=== PATIENT | female | born 1965 | race Caucasian/White ===

== ENCOUNTER 2018-02-19 14:10 | Emergency (ER) | payer SELFPAY ==
[~2018-02-19] VITALS: Ht 157.5 cm; Wt 68.2 kg
[2018-02-19 14:17] VITALS: BP 155/67; TEMP 97.8
[2018-02-19] MEDS ORDERED: CEPHALEXIN500 M1 PO (15:55)
[2018-02-19] MEDS ORDERED: NORCO 325 MG-51 TAB PO (16:02)
[2018-02-19 17:18] VITALS: PULSE 74
== END 2018-02-19 17:25 | disposition home or self-care (01) ==
LOC: COL.ER 14:10
DX: I87.2 Venous insufficiency (chronic) (peripheral) (principal)

== ENCOUNTER → 2018-02-23 | Outpatient (CLI) | payer SELFPAY ==
[~2018-02-23] MED LIST: CEPHALEXIN500 M1 PO; NORCO 325 MG-51 TAB PO
== END ==
LOC: ZCOL.LAB 17:34
DX: I83.015 Varicose veins of right lower extremity with ulcer other part of foot (principal)

== ENCOUNTER 2018-11-15 01:53 | Emergency (ER) | payer SELFPAY ==
[~2018-11-15] VITALS: Ht 157.5 cm; Wt 72.7 kg
[2018-11-15 02:18] LABS: ARTERIAL BLD GAS O2 SATURATION 93.6 % (92-100); ARTERIAL BLD GAS TCO2 CT 26.9; ARTERIAL BLOOD GAS BASE EXCESS -9.8 (-2-2); ARTERIAL BLOOD GAS HCO3 23.9 meq/L (22-26); ARTERIAL BLOOD GAS PO2 100.4 mmHg (80-100)
[2018-11-15 02:20] LABS: ARTERIAL BLOOD GAS PCO2 98.3 mmHg (35-45)
[2018-11-15 02:22] LABS: ALANINE AMINOTRANSFERASE 13 U/L (9-52); ALBUMIN 4.5 gm/dL (3.5-5.0); ALKALINE PHOSPHATASE 107 U/L (50-136); ANION GAP 12 mmol/L (7-16); AST,SGOT 56 U/L (15-37); BLOOD UREA NITROGEN 20 mg/dL (7-17); CARBON DIOXIDE 21 mmol/L (22-30); CHLORIDE 111 mmol/L (98-107); CREATININE, serum 0.63 (0.52-1.25); GLUCOSE 145 mg/dL (74-106); POTASSIUM 5.2 mmol/L (3.4-5.0); SODIUM 143 mmol/L (137-145); TOTAL PROTEIN 7.8 gm/dL (6.4-8.2)
[2018-11-15 02:32] LABS: TROPONIN-I < 0.012 ng/mL (0.000-0.035)
[2018-11-15 03:01] LABS: HEMATOCRIT 49.4 % (37.0-47.0); HEMOGLOBIN 14.1 g/dl (12.5-16.0); MEAN CELL VOLUME 108 fl (80.0-100.0); MEAN CORPUSCULAR HEMOGLOBIN 31 pg (27.0-31.0); MEAN CORPUSCULAR HGB CONC 29 g/dl (33.0-37.0); MEAN PLATELET VOLUME 9.5 fl (7.4-10.4); PLATELET COUNT 243 K/mm3 (130-400); RED BLOOD COUNT 4.59 M/mm3 (4.10-5.30); REDCELL DISTRIBUTION WIDTH-CV 18.4 % (11.5-14.5)
[2018-11-15 03:08] LABS: INR 0.9 (0.8-3.0); PROTHROMBIN TIME 10.7 SECONDS (9.7-12.8)
[2018-11-15 03:17] LABS: ANISOCYTOSIS 1+; BASOPHIL 1 % (0-2); HYPOCHROMIA 3+; LYMPHOCYTE 23 % (20.0-51.0); NEUTROPHILS 69 % (42.0-75.2); PLATELET ESTIMATE NORMAL (NORMAL)
[2018-11-15 03:43] LABS: ARTERIAL BLD GAS O2 SATURATION 97.8 % (92-100); ARTERIAL BLD GAS TCO2 CT 20.8; ARTERIAL BLOOD GAS BASE EXCESS -6.7 (-2-2); ARTERIAL BLOOD GAS HCO3 19.5 meq/L (22-26); ARTERIAL BLOOD GAS PCO2 41.4 mmHg (35-45); ARTERIAL BLOOD GAS PO2 127.4 mmHg (80-100); ARTERIAL BLOOD GAS pH 7.29 (7.35-7.45)
[2018-11-15 04:05] VITALS: BP 116/82; PULSE 108
--- NOTE | 2018-11-15 06:43 | NUR ---
PER ABG RESULTS PTS FI02 WAS DECREASED FROM 40% TO 30% PARAM WELL AND NO DISTRSES WAS NOTED
== END 2018-11-15 04:05 | disposition short-term general hospital (02) ==
LOC: COL.ER 01:53
PROVIDERS: Emergency Medicine
DX: J96.00 Acute respiratory failure, unspecified whether with hypoxia or hypercapnia (principal); J44.9 Chronic obstructive pulmonary disease, unspecified; F17.210 Nicotine dependence, cigarettes, uncomplicated; Z79.891 Long term (current) use of opiate analgesic
CPT/HCPCS: J2250; J2930; J3010; J3105; J3475; J7030

== ENCOUNTER → 2019-01-04 | Outpatient (CLI) | payer OTHER | LOC: COL.PUL 09:43 | PROVIDERS: Internal Medicine Pulmonary Disease | DX: R06.02 Shortness of breath (principal) ==

== ENCOUNTER → 2019-01-08 | Outpatient (CLI) | payer OTHER ==
[2019-01-08 06:44] LABS: ARTERIAL BLD GAS O2 SATURATION 94.6 % (92-100); ARTERIAL BLD GAS TCO2 CT 26.5; ARTERIAL BLOOD GAS BASE EXCESS 0.3 (-2-2); ARTERIAL BLOOD GAS HCO3 25.2 meq/L (22-26); ARTERIAL BLOOD GAS PCO2 41.8 mmHg (35-45); ARTERIAL BLOOD GAS PO2 75.3 mmHg (80-100)
== END ==
LOC: COL.PUL 06:26
PROVIDERS: Internal Medicine Pulmonary Disease
DX: J44.9 Chronic obstructive pulmonary disease, unspecified (principal)

== ENCOUNTER 2019-01-19 15:09 | Outpatient (RCR) | payer SELFPAY | END 2019-03-22 | disposition home or self-care (01) | LOC: COL.CR | DX: Z02.89 Encounter for other administrative examinations (principal) ==

== ENCOUNTER → 2019-01-25 | Outpatient (CLI) | payer OTHER ==
[2019-01-25 09:24] LABS: BASO # 0.1 (0.0-0.2); BASO % 0.7 % (0.0-2.0); EOS # 0.2 (0.0-0.7); EOS % 2.7 % (0-4.0); GRAN % 54.3 % (42.2-75.2); HEMATOCRIT 37.7 % (37.0-47.0); LYMPH # 2.6 (1.2-3.4); LYMPH % 34.5 % (20.0-51.0); MEAN CELL VOLUME 103 fl (80.0-100.0); MEAN CORPUSCULAR HEMOGLOBIN 30 pg (27.0-31.0); MEAN CORPUSCULAR HGB CONC 29 g/dl (33.0-37.0); MEAN PLATELET VOLUME 9.4 fl (7.4-10.4); MONO # 0.6 (0.1-0.6); MONO % 7.4 % (1.7-9.3); PLATELET COUNT 178 K/mm3 (130-400); RED BLOOD COUNT 3.66 M/mm3 (4.10-5.30)
[2019-01-25 09:44] LABS: ALBUMIN 3.8 gm/dL (3.5-5.0); BILIRUBIN,TOTAL 0.7 mg/dL (0.0-1.0); CHOLESTEROL RISK RATIO 2.2; CREATININE, serum 0.81 (0.52-1.25); POTASSIUM 4.2 mmol/L (3.4-5.0); TOTAL PROTEIN 6.6 gm/dL (6.4-8.2)
[2019-01-25 10:12] LABS: TSH w REFLEX 3.15 uIU/mL (0.465-4.680)
== END ==
LOC: COL.LAB 08:52
PROVIDERS: Registered Nurse
DX: Z13.228 Encounter for screening for other metabolic disorders (principal)

== ENCOUNTER → 2019-05-08 | Outpatient (CLI) | payer BC | LOC: MC.RAD 10:22 | DX: Z12.31 Encounter for screening mammogram for malignant neoplasm of breast (principal); N64.89 Other specified disorders of breast ==

== ENCOUNTER → 2019-05-10 | Outpatient (CLI) | payer BC | LOC: MC.RAD 10:40 | DX: R92.8 Other abnormal and inconclusive findings on diagnostic imaging of breast (principal) | CPT/HCPCS: G0279 ==

== ENCOUNTER → 2019-08-17 | Outpatient (CLI) | payer BC | LOC: COL.VAS 12:56 → COL.LAB 12:56 → COL.VAS 13:30 | DX: J44.9 Chronic obstructive pulmonary disease, unspecified (principal); I27.20 Pulmonary hypertension, unspecified; I34.0 Nonrheumatic mitral (valve) insufficiency ==

== ENCOUNTER → 2019-11-02 | Outpatient (CLI) | payer BC | LOC: COL.RAD 14:06 | DX: L97.329 Non-pressure chronic ulcer of left ankle with unspecified severity (principal) ==

== ENCOUNTER → 2019-11-21 | Outpatient (CLI) | payer BC | LOC: COL.VAS 12:20 | DX: L97.329 Non-pressure chronic ulcer of left ankle with unspecified severity (principal); Z87.891 Personal history of nicotine dependence ==

== ENCOUNTER 2020-12-13 06:34 | Emergency (ER) | payer BC ==
[~2020-12-13] VITALS: Ht 157.5 cm; Wt 81.8 kg
[2020-12-13 06:43] VITALS: TEMP 97.7
[2020-12-13] MEDS ORDERED: NORCO 325 MG-51 TAB PO (07:12)
[2020-12-13] MEDS ORDERED: DOXYCYCLINE 10100 MG PO (07:12)
[2020-12-13 07:20] VITALS: BP 172/67; PULSE 72
== END 2020-12-13 07:20 | disposition home or self-care (01) ==
LOC: COL.ER 06:34
DX: I83.013 Varicose veins of right lower extremity with ulcer of ankle (principal); L97.319 Non-pressure chronic ulcer of right ankle with unspecified severity; J44.9 Chronic obstructive pulmonary disease, unspecified; I25.2 Old myocardial infarction; Z98.890 Other specified postprocedural states; Z88.1 Allergy status to other antibiotic agents; Z88.2 Allergy status to sulfonamides; Z87.891 Personal history of nicotine dependence

== ENCOUNTER → 2020-12-18 | Outpatient (CLI) | payer BC ==
[~2020-12-18] MED LIST changes: +DOXYCYCLINE 10100 MG PO
[2020-12-18 08:31] LABS: BASO # 0.1 K/mm3 (0.0-0.2); BASO % 0.7 % (0.0-2.0); EOS # 0.2 K/mm3 (0.0-0.7); EOS % 2.2 % (0-4.0); GRAN # 3.8 K/mm3 (1.4-6.5); GRAN % 52.1 % (42.2-75.2); LYMPH # 2.7 K/mm3 (1.2-3.4); LYMPH % 37.7 % (20.0-51.0); MEAN CELL VOLUME 97 fl (80.0-100.0); MEAN CORPUSCULAR HEMOGLOBIN 28 pg (27.0-31.0); MEAN CORPUSCULAR HGB CONC 29 g/dl (33.0-37.0); MONO # 0.5 K/mm3 (0.1-0.6); PLATELET COUNT 166 K/mm3 (130-400); RED BLOOD COUNT 3.92 M/mm3 (4.10-5.30); REDCELL DISTRIBUTION WIDTH-CV 18.7 % (11.5-14.5)
[2020-12-18 08:53] LABS: ALBUMIN 3.4 gm/dL (3.5-5.0); BILIRUBIN,TOTAL 0.5 mg/dL (0.2-1.2); CALCIUM 8.7 mg/dL (8.4-10.2); CREATININE, serum 0.78 mg/dL (0.57-1.11); POTASSIUM 4.5 mmol/L (3.5-4.5); TOTAL PROTEIN 6.4 gm/dL (6.2-8.1)
== END ==
LOC: COL.LAB 08:00
PROVIDERS: Registered Nurse
DX: L97.329 Non-pressure chronic ulcer of left ankle with unspecified severity (principal); L97.319 Non-pressure chronic ulcer of right ankle with unspecified severity

== ENCOUNTER → 2021-02-27 | Outpatient (CLI) | payer BC | LOC: COL.RAD 13:11 | DX: Z12.2 Encounter for screening for malignant neoplasm of respiratory organs (principal); Z87.891 Personal history of nicotine dependence ==

== ENCOUNTER 2021-06-09 12:58 | Emergency (ER) | payer BC ==
[~2021-06-09] VITALS: Ht 157.5 cm; Wt 81.8 kg
[2021-06-09 13:04] VITALS: TEMP 97.7
[2021-06-09] MEDS ORDERED: PRIL40 PO (13:25)
[2021-06-09] MEDS ORDERED: LIPITOR 40MG TA40 MG PO (13:25)
[2021-06-09] MEDS ORDERED: ASPIRIN 81M81 MG/TA2 PO (13:25)
[2021-06-09] MEDS ORDERED: MAGNESIUM250 M1 PO (13:26)
[2021-06-09] MEDS ORDERED: TRELEGY ELLIPT1 EACH IH (13:26)
[2021-06-09] MEDS ORDERED: PROVENTIL0.09 MG/A1 IH (13:26)
[2021-06-09] MEDS ORDERED: NORCO 325 MG-51 TAB PO (13:47)
[2021-06-09 14:00] VITALS: BP 144/71
[2021-06-09 14:36] VITALS: PULSE 75
== END 2021-06-09 14:36 | disposition home or self-care (01) ==
LOC: COL.ER 12:58
DX: L97.319 Non-pressure chronic ulcer of right ankle with unspecified severity (principal); Z87.891 Personal history of nicotine dependence
CPT/HCPCS: J2270; J2550

== ENCOUNTER → 2021-06-17 | Outpatient (CLI) | payer BC ==
[~2021-06-17] MED LIST changes: +ASPIRIN 81M81 MG/TA2 PO; +LIPITOR 40MG TA40 MG PO; +MAGNESIUM250 M1 PO; +PRIL40 PO; +PROVENTIL0.09 MG/A1 IH; +TRELEGY ELLIPT1 EACH IH
== END ==
LOC: COL.RAD 14:43
DX: M20.11 Hallux valgus (acquired), right foot (principal); M25.871 Other specified joint disorders, right ankle and foot

== ENCOUNTER 2021-07-16 14:43 | Outpatient (RCR) | payer BC ==
[2021-08-07] MEDS ORDERED: CEPHALEXIN500 M1 PO (14:42)
[2021-08-07] MEDS ORDERED: PERCOCET 325 MG1 TA2 PO (14:42)
== END 2021-08-11 | disposition home or self-care (01) ==
LOC: WSPT
DX: M79.671 Pain in right foot (principal)

== ENCOUNTER 2021-08-06 21:41 | Emergency (ER) | payer BC ==
[~2021-08-06] VITALS: Ht 157.5 cm; Wt 77.3 kg
[~2021-08-06 21:41] MED LIST changes: -PERCOCET 325 MG1 TA2 PO
[2021-08-06 21:49] VITALS: BP 176/147; TEMP 98.2
[2021-08-06 23:00] VITALS: PULSE 99
[2021-08-07] MEDS ORDERED: PERCOCET 325 MG1 TA2 PO (14:42)
[2021-08-07] MEDS ORDERED: CEPHALEXIN500 M1 PO (14:42)
== END 2021-08-06 23:00 | disposition home or self-care (01) ==
LOC: COL.ER 21:41
DX: G89.29 Other chronic pain (principal); M79.671 Pain in right foot; M79.672 Pain in left foot; D64.9 Anemia, unspecified; Z87.891 Personal history of nicotine dependence

== ENCOUNTER → 2021-08-06 | Outpatient (CLI) | payer BC ==
[~2021-08-06] MED LIST changes: +PERCOCET 325 MG1 TA2 PO
[2021-08-06 17:29] LABS: BASO # 0.1 K/mm3 (0.0-0.2); BASO % 0.5 % (0.0-2.0); EOS # 0.1 K/mm3 (0.0-0.7); EOS % 0.6 % (0.0-4.0); GRAN # 10.1 K/mm3 (1.4-6.5); GRAN % 81.1 % (42.2-75.2); LYMPH # 1.3 K/mm3 (1.2-3.4); LYMPH % 10.6 % (20.0-51.0); MEAN CELL VOLUME 83 fl (80.0-100.0); MEAN CORPUSCULAR HGB CONC 28 g/dl (33.0-37.0); MONO # 0.8 K/mm3 (0.1-0.6); MONO % 6.3 % (1.7-9.3); PLATELET COUNT 253 K/mm3 (130-400); RED BLOOD COUNT 3.37 M/mm3 (4.10-5.30); REDCELL DISTRIBUTION WIDTH-CV 21.1 % (11.5-14.5)
[2021-08-06 17:30] LABS: HEMATOCRIT 27.9 % (37.0-47.0); HEMOGLOBIN 7.7 g/dl (12.5-16.0); MEAN CORPUSCULAR HEMOGLOBIN 23 pg (27-31)
[2021-08-06 17:44] LABS: BILIRUBIN,TOTAL 0.5 mg/dL (0.2-1.2); CALCIUM 8.1 mg/dL (8.4-10.2); CREATININE, serum 0.75 mg/dL (0.57-1.11); TOTAL PROTEIN 6.4 gm/dL (6.2-8.1)
[2021-08-07 11:00] LABS: RETIC # 0.12 M/mm3 (0.02-0.16); RETIC % 3.7 % (0.5-3.52)
== END ==
LOC: COL.LAB 17:08
PROVIDERS: Registered Nurse
DX: L97.319 Non-pressure chronic ulcer of right ankle with unspecified severity (principal); Z79.899 Other long term (current) drug therapy

== ENCOUNTER 2021-08-07 12:03 | Emergency (ER) | payer BC ==
[~2021-08-07] VITALS: Ht 157.5 cm; Wt 81.8 kg
[2021-08-07 12:14] VITALS: TEMP 98.8
[2021-08-07 13:14] LABS: MEAN CELL VOLUME 83 fl (80.0-100.0); MEAN CORPUSCULAR HGB CONC 28 g/dl (33.0-37.0); MEAN PLATELET VOLUME 8.7 fl (7.4-10.4); PLATELET COUNT 217 K/mm3 (130-400); RED BLOOD COUNT 3.14 M/mm3 (4.10-5.30); REDCELL DISTRIBUTION WIDTH-CV 21.4 % (11.5-14.5)
[2021-08-07 13:23] LABS: HEMATOCRIT 26.1 % (37.0-47.0); HEMOGLOBIN 7.2 g/dl (12.5-16.0); MEAN CORPUSCULAR HEMOGLOBIN 23 pg (27-31)
[2021-08-07 13:38] LABS: EOSINOPHIL 3 % (0-4); LYMPHOCYTE 17 % (20.0-51.0); METAMYELOCYTE 1 % (0-0); NEUTROPHILS 78 % (42.0-75.2); PLATELET ESTIMATE NORMAL (NORMAL)
[2021-08-07 13:39] LABS: ANISOCYTOSIS 2+; HYPOCHROMIA 1+; OVALOCYTES 1+
[2021-08-07 13:43] LABS: ERYTHROCYTE SEDIMENTATION RATE 32 mm/hr (0-30)
[2021-08-07] MEDS ORDERED: CEPHALEXIN500 M1 PO (14:42)
[2021-08-07] MEDS ORDERED: PERCOCET 325 MG1 TA2 PO (14:42)
[2021-08-07 15:07] VITALS: BP 117/47; PULSE 85
== END 2021-08-07 15:14 | disposition home or self-care (01) ==
LOC: COL.ER 12:03
PROVIDERS: Personal Emergency Response Attendant
DX: L97.529 Non-pressure chronic ulcer of other part of left foot with unspecified severity (principal); L97.519 Non-pressure chronic ulcer of other part of right foot with unspecified severity; D64.9 Anemia, unspecified; Z88.1 Allergy status to other antibiotic agents
CPT/HCPCS: J2060; J2270; J2405

== ENCOUNTER → 2021-11-17 | Outpatient (CLI) | payer BC ==
[~2021-11-17] MED LIST changes: +PERCOCET 325 MG1 TA2 PO
== END ==
LOC: MHCPAIN 14:45
DX: M67.871 Other specified disorders of synovium, right ankle and foot (principal); M76.71 Peroneal tendinitis, right leg; M54.59 Other low back pain; M47.816 Spondylosis without myelopathy or radiculopathy, lumbar region
CPT/HCPCS: G0463

== ENCOUNTER → 2022-01-18 | Outpatient (CLI) | payer BC | LOC: MHCPAIN 09:45 | DX: M67.871 Other specified disorders of synovium, right ankle and foot (principal); M76.71 Peroneal tendinitis, right leg; M54.50 Low back pain, unspecified; M47.816 Spondylosis without myelopathy or radiculopathy, lumbar region | CPT/HCPCS: G0463 ==

== ENCOUNTER → 2022-05-26 | Outpatient (CLI) | payer BC | LOC: MHCPAIN 09:56 | DX: M54.50 Low back pain, unspecified (principal); M25.571 Pain in right ankle and joints of right foot; M67.871 Other specified disorders of synovium, right ankle and foot; M47.816 Spondylosis without myelopathy or radiculopathy, lumbar region | CPT/HCPCS: G0463 ==

== ENCOUNTER 2022-06-08 11:15 | Outpatient (RCR) | payer BC | END 2022-06-11 | disposition home or self-care (01) | LOC: WSPT | DX: M76.61 Achilles tendinitis, right leg (principal) ==